=== PATIENT | female | born 1945 | race Caucasian/White ===

== ENCOUNTER 2017-10-09 07:31 | Outpatient (CLI) | payer MEDICARE | END 2017-10-09 07:32 | disposition home or self-care (01) | LOC: BICCT 07:31 | PROVIDERS: ATTEND Urology | DX: N20.0 Calculus of kidney (principal); R35.0 Frequency of micturition | CPT/HCPCS: 74176 ==

== ENCOUNTER 2017-11-22 19:58 | Observation (INO) | payer MEDICARE ==
[2017-11-22 20:37] LABS: #Basophils 0.1 thou/uL (0.0-0.2); #Eosinphils 0.2 thou/uL (0.0-0.7); #Lymphocytes 3.2 thou/uL (1.20-3.40); #Monocytes 0.7 thou/uL (0.11-0.59); #Neutrophils 5.3 thou/uL (1.40-6.50); %Basophils 1.1 % (0.0-1.0); %Eosinophils 1.8 % (0.0-10.0); %Lymphocytes 33.9 % (21.0-51.0); %Monocytes 7.7 % (0.0-10.0); %Neutrophils 55.6 % (42.0-75.0); Hemoglobin 16.9 g/dL (12.0-16.0); Mean Corpuscular HGB CONC 34.4 g/dL (32.0-36.0); Mean Corpuscular Hemoglobin 31.5 pg (27.0-31.0); Mean Corpuscular Volume 91.6 fl (81.0-99.0); Mean Platelet Volume 7.4 fL (7.4-10.4); Platelet Count 162 thou/uL (130-400); RBC Distribution Width 11.2 % (11.5-14.5); Red Blood Cell (RBC) Count 5.35 mill/uL (4.20-5.40); White Blood Cell (WBC) Count 9.5 thou/uL (4.8-10.8)
--- NOTE | 2017-11-22 20:47 | RAD ---
CHEST ONE VIEW: 11/22/17 COMPARISON: None. HISTORY: Pain x1 month. FINDINGS: Normal cardiac silhouette. Pulmonary vessels and hilum are normal. costophrenic angles are clear. Martin gs are hyperinflated. No consolidation. No pneumothorax or osseous abnormalities. IMPRESSION: Hyperinflation. COPD. No acute process. POS: [facility]
[2017-11-22 20:58] LABS: ALT (SGPT) 19 U/L (8-55); AST (SGOT) 24 U/L (5-34); Albumin 4.1 g/dL (3.4-4.8); Alkaline Phosphatase 99 U/L (40-150); Anion Gap 14 mmol/L (10-20); BUN (Urea Nitrogen) 15 mg/dL (9.8-20.1); Bilirubin, Total 0.5 mg/dL (0.2-1.2); CK (CPK) 68 U/L (29-168); Calc. Creatinine Clearance 0 mL/min (70-130); Calcium 9.6 mg/dL (7.8-10.44); Carbon Dioxide 22 mmol/L (23-31); Chloride 111 mmol/L (98-107); Estimated GFR-MDRD 69; Globulin 3.1 g/dL (2.4-3.5); Glucose 99 mg/dL (83-110); Protein, Total 7.2 g/dL (6.0-8.3); Sodium 143 mmol/L (136-145)
[2017-11-22 21:03] LABS: CKMB 0.7 ng/mL (0-6.6); Troponin I Less than 0.010 ng/mL (< 0.028)
[2017-11-22 23:53] LABS: Troponin I Less than 0.010 ng/mL (< 0.028)
[2017-11-23] MEDS ORDERED: Acetaminophen 325 MG TAB PO PRN (00:29)
[2017-11-23] MEDS ORDERED: Ondansetron ODT 4 MG TAB SL PRN (00:29)
[2017-11-23] MEDS ORDERED: Ondansetron HCl/PF 4 MG/2 ML Vial IVP PRN (00:29)
[2017-11-23] MEDS ORDERED: Sodium Chloride 0.9% 1,000 ML IV SCH (00:30)
[2017-11-23] MEDS ORDERED: Ipratropium Bromide 0.06% Nasal Inhaler 15ml EA NARE PRN (03:12)
[2017-11-23] MEDS ORDERED: Ibuprofen 200 MG TAB PO PRN (03:12)
[2017-11-23] MEDS ORDERED: Zolpidem Tartrate 5 MG TAB PO PRN (03:12)
[2017-11-23 03:16] LABS: Troponin I Less than 0.010 ng/mL (< 0.028)
[2017-11-23] MEDS ORDERED: Thyroid 60 MG TAB PO SCH (06:00)
[2017-11-23] MEDS ORDERED: Aspirin 325 MG TAB PO SCH (08:00)
[2017-11-23] MEDS ORDERED: Potassium Citrate 10 MEQ TAB PO SCH (08:00)
[2017-11-23] MEDS ORDERED: busPIRone HCl 5 MG TAB PO SCH (09:00)
[2017-11-23] MEDS ORDERED: Lisinopril 5 MG TAB PO SCH (09:00)
[2017-11-23] MEDS ORDERED: Enoxaparin Sodium 30 MG/0.3 ML SYRINGE SC SCH (09:00)
--- NOTE | 2017-11-23 15:01 | NM ---
MYOCARDIAL PERFUSION SCAN WITH SPECT IMAGING: HISTORY: Dyspnea with exertion. FINDINGS: Examination was performed using 28 mCi 99m Technetium sestamibi on the stress and 9 on the resting im ages. This shows a normal distribution of the radiopharmaceutical without signs of ischemia or scar. WALL MOTION: There is symmetric contractility to the ventricle. LEFT VENTRICULAR EJECTION FRACTION: The calculated left ventricular ejection fraction was 96%. Please correlate with echocardiogram. IMPRESSION: Unremarkable myocardial perfusion scan. POS: [facility]
[2017-11-23 15:52] VITALS: BP 157/71; TEMP 97.5
[2017-11-23] MEDS ORDERED: Aspirin 81 mg Enteric Coated Tablet PO SCH (18:00)
[2017-11-23] MEDS ORDERED: Metoprolol Tartrate 100 MG TAB PO SCH (18:00)
--- NOTE | 2017-11-23 18:30 | CON ---
DATE OF CONSULTATION: 11/23/2017 SUBJECTIVE: Patient is a pleasant 72-year-old woman who presents for evaluation of chest discomfort and dyspnea. The patient has previous history of SVT. She has been on chronic medical therapy. She also has a history of hypertension. The patient states that last month, she noted having substernal chest discomfort. This occurred primarily with exertion and was relieved by rest. The patient also feels a fluttering sensation. The patient states that this usually last up to 5 minutes. This did not occur at rest. PAST MEDICAL HISTORY: 1. Hypertension. 2. Thyroid disorder. 3. Supraventricular tachycardia. PAST SURGICAL HISTORY: Foot surgery, tonsillectomy, tubal ligation,and surgery for benign cyst. ALLERGIES: No known drug allergies. MEDICATIONS ON ADMISSION: Synthroid 120 mcg daily, potassium 50 mEq daily, lisinopril 5 daily, metoprolol 100 XL daily, buspirone 5 daily, aspirin 81 daily , andLipitor 20 at bedtime. SOCIAL HISTORY: Nonsmoker. ALLERGIES: No known drug allergies. REVIEW OF SYSTEMS: Ten-point system otherwise unremarkable. No history of easy bruising or bleeding, bright red blood per rectum. PHYSICAL EXAMINATION: GENERAL: Obese woman in no acute distress. VITAL SIGNS: Blood pressure was 160/69. NECK: Showed no jugular venous distention, no carotid bruits. LUNGS: Clear to auscultation. HEART: Regular rate and rhythm, normal S1, S2, no murmurs. ABDOMEN: Nondistended. EXTREMITIES: Showed no edema. SKIN: Warm and dry. NEUROLOGIC: Nonfocal. VASCULAR: Radial pulses 2+. LABORATORY DATA AND IMAGING DATA: White blood cell count 9.5, hemoglobin 16.9, hematocrit 49.0, platelets 162. Sodium 143, potassium 4.0, chloride 111, bicarbonate 22, BUN 15, creatinine is 0.81, troponin less than 0.01. BNP is 20. Her EKG revealed her to have normal sinus rhythm, nonspecific ST abnormality. IMPRESSION: 1. Chest pain. 2. History of supraventricular tachycardia. 3. Hypertension. 4. Hyperlipidemia. 5. Obesity. This patient presents with chest discomfort and palpitations. Her EKG has showed no acute change. Cardiac enzymes have no evidence of myocardial infarction. From a cardiac standpoint, would recommend stress testing .If there is any evidence of ischemia, then she will need to undergo further evaluation. PLAN: Proceed with Cardiolite stress testing. [facility]
[2017-11-23] MEDS ORDERED: Atorvastatin Calcium 20 MG TAB PO SCH (21:00)
== END 2017-11-23 16:26 | disposition home or self-care (01) ==
LOC: ERS 19:58 → 2SW 21:50
PROVIDERS: ADMIT Internal Medicine; ATTEND Internal Medicine
DX: R07.89 Other chest pain (principal); I10 Essential (primary) hypertension; E07.9 Disorder of thyroid, unspecified; I47.1 Supraventricular tachycardia; E78.5 Hyperlipidemia, unspecified; E66.9 Obesity, unspecified; Z68.23 Body mass index [BMI] 23.0-23.9, adult; Z79.82 Long term (current) use of aspirin; Z79.899 Other long term (current) drug therapy
CPT/HCPCS: 71045; 78452; 80053; 82550; 82553; 83880; 84484 ×3; 85025; 93005; 93017; 96360; 96361; 97139; 99285; A9500; G0378; 36415; J1650

== ENCOUNTER 2017-12-08 14:29 | Emergency (ER) | payer MEDICARE ==
--- NOTE | 2017-12-08 15:18 | ULT ---
LEFT LOWER EXTREMITY VENOUS ULTRASOUND: Date: 12/08/17 HISTORY: Left lower extremity pain. TECHNIQUE: Multiplanar Rosa scale and color Doppler images were obtained in a left lower extremity venous ultra sound. Spectral analysis of the Doppler waveforms were performed. FINDINGS: The left common femoral vein, profunda femoral vein, superficial femoral vein, and popliteal vein are normal in appearance without visible thrombus. These vessels demonstrate normal compression, flow, a nd augmentation. The posterior tibial vein and greater saphenous vein are also patent. IMPRESSION: No evidence of left lower extremity deep venous thrombosis. POS: [facility]
== END 2017-12-08 15:46 | disposition home or self-care (01) ==
LOC: ERS 14:29
DX: I83.812 Varicose veins of left lower extremity with pain (principal); E03.9 Hypothyroidism, unspecified; E78.5 Hyperlipidemia, unspecified; I10 Essential (primary) hypertension; F41.9 Anxiety disorder, unspecified; Z79.899 Other long term (current) drug therapy; Z79.82 Long term (current) use of aspirin

== ENCOUNTER 2017-12-20 00:07 | Inpatient (IN) | payer MEDICARE ==
[2017-12-20 00:30] LABS: #Eosinphils 0.1 thou/uL (0.0-0.7); #Monocytes 0.7 thou/uL (0.11-0.59); #Neutrophils 3.4 thou/uL (1.40-6.50); %Basophils 0.5 % (0.0-1.0); %Eosinophils 1.9 % (0.0-10.0); %Lymphocytes 41.2 % (21.0-51.0); %Monocytes 9.9 % (0.0-10.0); %Neutrophils 46.5 % (42.0-75.0); Hemoglobin 16.1 g/dL (12.0-16.0); Mean Corpuscular Hemoglobin 31.9 pg (27.0-31.0); Mean Corpuscular Volume 91.2 fL (78.0-98.0); Mean Platelet Volume 7.3 fL (7.4-10.4); Platelet Count 171 thou/uL (130-400); RBC Distribution Width 11.2 % (11.5-14.5); Red Blood Cell (RBC) Count 5.04 mill/uL (4.20-5.40); White Blood Cell (WBC) Count 7.4 thou/uL (4.8-10.8)
[2017-12-20 00:46] LABS: ALT (SGPT) 29 U/L (8-55); AST (SGOT) 20 U/L (5-34); Alkaline Phosphatase 90 U/L (40-150); Anion Gap 12 mmol/L (10-20); BUN (Urea Nitrogen) 12 mg/dL (9.8-20.1); Bilirubin, Total 0.8 mg/dL (0.2-1.2); Calc. Creatinine Clearance 0 mL/min (70-130); Calcium 9.4 mg/dL (7.8-10.44); Carbon Dioxide 27 mmol/L (23-31); Chloride 105 mmol/L (98-107); Estimated GFR-MDRD 73; Globulin 2.9 g/dL (2.4-3.5); Glucose 93 mg/dL (83-110); Potassium 4.2 mmol/L (3.5-5.1); Protein, Total 6.9 g/dL (6.0-8.3); Sodium 140 mmol/L (136-145)
[2017-12-20 00:50] LABS: Troponin I Less than 0.010 ng/mL (< 0.028)
[2017-12-20] MEDS ORDERED: Enoxaparin Sodium 80 MG/0.8 ML SYRINGE ONE (02:55)
[2017-12-20 04:27] LABS: Troponin I Less than 0.010 ng/mL (< 0.028)
[2017-12-20 06:49] LABS: Troponin I Less than 0.010 ng/mL (< 0.028)
--- NOTE | 2017-12-20 08:53 | RAD ---
PORTABLE CHEST 1 VIEW: Date: 12/19/17 Time: 2353 hours HISTORY: Chest pain. Shortness of breath. FINDINGS/IMPRESSION: Comparison made with exam of 11/22/17. The heart size is enlarged. The lungs are expanded with chronic changes. No lobar consolidation, pneu mothoraces, evelia pulmonary edema, or large effusions are seen. POS: [facility]
[2017-12-20] MEDS ORDERED: Aspirin 325 mg Enteric Coated Tablet PO SCH (09:00)
--- NOTE | 2017-12-20 09:15 | CT ---
PRELIMINARY REPORT/[facility]/EMERGENTY AFTER-HOURS PROCEDURE CT Head Without Intravenous Contrast CLINICAL HISTORY: 72 years old, female; Signs and symptoms; Altered mental status/memory loss; Confusion or disorientat ion; Patient HX: F72 presents to ed with left abd pain and a general sensation of feeling "weird" ons et 30 min ago. Pt was seen in hospital approx. 1 month ago. Pt reports that pain moved from llq to back, to left epigastric area, to left groin. Pt's family reports that pt was "out of it" for a time being, was hard to understand (possible slurred speech), and that she was "zombielike. " pt needed assistance walking into the ed. TECHNIQUE: Axial computed tomography images of the head/brain without intravenous contrast. COMPARISON: No relevant prior studies available. FINDINGS: Brain: Normal. No hemorrhage. No significant white matter disease. No edema. Ventricles: Normal. No ventriculomegaly. Bones/joints: Normal. No acute fracture. Soft tissues: Normal. Sinuses: Unremarkable as visualized. No acute sinusitis. Mastoid air cells: Unremarkable as visualized. No mastoid effusion. IMPRESSION: No acute intracranial hemorrhage. Thank you for allowing us to participate in the care of your patient. Dictated and Authenticated by: Pablo Cadena MD 12/20/2017 2:05 AM Central Time ([place] & [place]) FINAL REPORT CT BRAIN WITHOUT CONTRAST: Date: 12/20/17 FINDINGS/IMPRESSION: I agree with the preliminary report given by Anthony. No CT evidence of acute intracranial process is se en. POS: [facility]
--- NOTE | 2017-12-20 09:18 | CT ---
PRELIMINARY REPORT/[facility]/EMERGENTY AFTER-HOURS PROCEDURE CT Angiography Chest With Intravenous Contrast CLINICAL HISTORY: 72 years old, female; Pain; Chest pain; Abdominal pain; Flank; Other: Left sided; Patient HX: F72 pre sents to ed with left abd pain and a general sensation of feeling "weird" onset 30 min ago. Pt was se en in hospital approx. 1 month ago. Pt reports that pain moved from llq to back, to left epigastric a autumn, to left groin. Pt's family reports that pt was "out of it" for a time being, was hard to underst and (possible slurred speech), and that she was "zombielike. " pt needed assistance walking into the ed. TECHNIQUE: Axial computed tomographic angiography images of the chest with intravenous contrast using pulmonary embolism protocol. MIP reconstructed images were created and reviewed. Coronal and sagittal reformatted images were created and reviewed. COMPARISON: No relevant prior studies available. FINDINGS: Pulmonary arteries: There are filling defects within the RIGHT lower lobe pulmonary arteries consiste nt with acute pulmonary emboli. Aorta: There is no evidence of aortic dissection, leak, rupture, or other complications. The aorta is normal. Lungs: There is subpleural atelectasis of the dependent portions of the lungs. No mass. Pleural space: Normal. No significant effusion. No pneumothorax. Heart: RV LV ratio is approximately 0.9. No RIGHT heart strain. No significant pericardial effusion. Bones/joints: No acute fracture. No dislocation. Soft tissues: Normal. Lymph nodes: Normal. No enlarged lymph nodes. IMPRESSION: 1. There is no evidence of aortic dissection, leak, rupture, or other complications. 2. There are filling defects within the RIGHT lower lobe pulmonary arteries consistent with acute pul monary emboli. THIS REPORT CONTAINS FINDINGS THAT MAY BE CRITICAL TO PATIENT CARE. The findings were verbally commun icated via telephone conference with BETSY BANUELOS at 2:12 AM CDT on 12/20/2017. The findings were ac knowledged and understood. CT Angiography Abdomen With Intravenous Contrast TECHNIQUE: Axial computed tomographic angiography images of the abdomen with intravenous contrast. MIP reconstructed images were created and reviewed. Coronal and sagittal reformatted images were created and reviewed. COMPARISON: No relevant prior studies available. FINDINGS: Aorta: There is no evidence of aortic dissection, leak, rupture, aneurysm or other complications. The aorta is normal. Celiac trunk and mesenteric arteries: No acute findings. No occlusion or significant stenosis. Renal arteries: No acute findings. No occlusion or significant stenosis. Lung bases: Normal. No mass. No consolidation. Mediastinum: A small hiatal hernia is present. Liver: There are no focal liver lesions identified. Gallbladder and bile ducts: The gallbladder is normal. There is no evidence of biliary ductal dilatio n. No calcified stones. Pancreas: The pancreas appears normal. No ductal dilation. Spleen: The spleen is normal. Adrenals: The adrenal glands are normal. Kidneys and ureters: The kidneys appear normal. No hydronephrosis. Stomach and bowel: The stomach is normal. The duodenum is unremarkable. No obstruction. No mucosal th ickening. Intraperitoneal space: Normal. No significant fluid collection. No free air. Bones/joints: No acute fracture. No dislocation. Soft tissues: There is a fat-containing umbilical hernia. Lymph nodes: Normal. No enlarged lymph nodes. IMPRESSION: There is no evidence of aortic dissection, leak, rupture, aneurysm or other complications. Thank you for allowing us to participate in the care of your patient. Dictated and Authenticated by: Pablo Cadena MD 12/20/2017 2:13 AM Central Time ([place] & [place]) FINAL REPORT CT CHEST WITH IV CONTRAST AND 3D POSTPROCESSING CT ABDOMEN WITH IV CONTRAST AND 3D POSTPROCESSING: Date: 12/20/17 FINDINGS/IMPRESSION: I agree with the preliminary report given by Anthony. POS: [facility]
[2017-12-20] MEDS ORDERED: ISOVUE-370 76%-LOCM 1 ML ONE (10:46)
[2017-12-20] MEDS ORDERED: hydrALAZINE 20 MG/ML VIAL SLOW IVP PRN (13:21)
[2017-12-20] MEDS ORDERED: cloNIDine 0.1 MG TAB PO PRN (13:21)
[2017-12-20] MEDS ORDERED: Ipratropium Bromide 0.06% Nasal Inhaler 15ml EA NARE PRN (13:21)
[2017-12-20] MEDS ORDERED: Ondansetron ODT 4 MG TAB PO PRN (13:21)
[2017-12-20] MEDS ORDERED: Ondansetron HCl/PF 4 MG/2 ML Vial IVP PRN (13:21)
[2017-12-20] MEDS ORDERED: Zolpidem Tartrate 5 MG TAB PO PRN (13:21)
[2017-12-20] MEDS ORDERED: Acetaminophen 500 MG TAB PO PRN (13:21)
--- NOTE | 2017-12-20 14:07 | HP ---
DATE OF ADMISSION: 12/20/2017 PRIMARY CARE PROVIDER: Dr. Chase Olvera. CHIEF COMPLAINT: Left-sided chest and abdominal pain. HISTORY OF PRESENT ILLNESS: This is a 72-year-old female who presented to [facility] Emergency Department complaining of persistent left chest and left upper abdominal pain. The pat ient states the symptoms began approximately midnight on 12/20/2017. Patient states she had gone to bed when she developed left-sided chest, left upper abdominal and back discomfort. The patient also appeared somewhat confused and "zombielike" per report. The patient went to the restroom and then return back to bed; however, the pain increased concerning enough to seek medical attention. T he patient denied any specific shortness of breath, recent trauma, injury, surgery, fever, chills or travel history. The patient denied taking any specific medication for relief. Patient states she andersen s had some migratory symptoms in the left chest and left upper abdomen over the last couple of months and underwent cardiac stress testing in 11/2017 with negative findings. The patient also had some p ain in the left lower leg, undergoing Doppler studies on 12/08/2017 showing no evidence for DVT. The patient denies any change to her chronic medication regimen. Family members with similar symptoms, recent travel or prolonged sitting. The patient denies any recent fall, change to bowel habits, dysu itz or history of kidney stones. In the emergency room, the patient underwent general evaluation inc luding CT of the chest with dissection protocol showing right lower lung pulmonary embolus appearing acute in nature. Patient also underwent CT of the brain showing no acute process and portable chest x-ray imaging showing chronic changes without acute process. The patient received subcutaneous Loven ox 80 mg x1 dose as well as aspirin 324 mg. The patient was transferred to the telemetry unit for fu rther evaluation. PAST MEDICAL HISTORY: 1. Hypothyroidism. 2. Hypertension. 3. Hyperlipidemia. 4. History of bilateral breast cyst status post cystectomy. PAST SURGICAL HISTORY: 1. Status post left foot surgery. 2. Status post bilateral tubal ligation. 3. Status post tonsillectomy. CURRENT MEDICATIONS: 1. Synthroid 120 mcg p.o. daily. 2. Potassium 50 mEq p.o. daily. 3. Lisinopril 5 mg p.o. daily. 4. Metoprolol 100 mg XL daily. 5. BuSpar 5 mg p.o. daily. 6. Ipratropium bromide 2 sprays in each naris t.i.d. p.r.n. 7. Lisinopril 5 mg p.o. daily. 8. Stewart thyroid 120 mg p.o. daily. 9. Ambien 5 mg p.o. at bedtime p.r.n. ALLERGIES: No known drug allergies. FAMILY HISTORY: No inheritable diseases per patient report. SOCIAL HISTORY: Patient is , accompanied by her in the hospital. Retired teacher. N o current alcohol, tobacco or illicit drug use. REVIEW OF SYSTEMS: The following complete review of systems was negative, unless otherwise mentioned in the HPI or below: Constitutional: Weight loss or gain, ability to conduct usual activities. Skin: Rash, itching. Eyes: Double vision, pain. ENT/Mouth: Nose bleeding, neck stiffness, pain, tenderness. Cardiovascular: Palpitations, dyspnea on exertion, orthopnea. Respiratory: Shortness of breath, wheezing, cough, hemoptysis, fever or night sweats. Gastrointestinal: Poor appetite, abdominal pain, heartburn, nausea, vomiting, constipation, or diarr hea. Genitourinary: Urgency, frequency, dysuria, nocturia. Musculoskeletal: Pain, swelling. Neurologic/Psychiatric: Anxiety, depression. Allergy/Immunologic: Skin rash, bleeding tendency. Otherwise negative except as stated per HPI. PHYSICAL EXAMINATION: VITAL SIGNS: Currently blood pressure 120/60, pulse 70, respiratory rate 17, temperature 97.7 degree s Fahrenheit, O2 saturation 100% on room air. GENERAL APPEARANCE: This is a 72-year-old female, alert and oriented x3, pleasant, convers ant, smiling, in no acute distress. HEENT: Pupils are equal, round, and reactive to light and accommodation. Extraocular muscles are in tact. No scleral icterus, no conjunctival injection. Nares patent. OP is clear. Teeth in good rep air. NECK: Supple, no cervical adenopathy, no thyromegaly, no carotid bruits, no JVD appreciated. Cervic al spine with full active and passive range of motion. No meningeal signs appreciated. CHEST: Lungs are clear to auscultation bilaterally. CARDIOVASCULAR: S1 and S2 without noted murmur, rub or gallop. ABDOMEN: Rounded, soft, nontender and nondistended. Bowel sounds are positive in all four quadrants . There is no hepatosplenomegaly, no abdominal bruits, no rebound or guarding appreciated. EXTREMITIES: Warm and dry with fair turgor. No clubbing, cyanosis or asymmetric edema appreciated. Pulses palpable distally at the dorsalis pedis, posterior tibial, and popliteal arteries bilaterally . Capillary refill less than 2 seconds. NEUROLOGIC: Cranial nerves II-XII are grossly intact. No focal or lateralizing signs appreciated. PERTINENT LABORATORY DATA AND IMAGING DATA: Complete metabolic profile within normal limits. Tropon in I negative x3. Lipase 59. CBC showed white blood cell count of 7.4, hemoglobin 16, hematocrit 46 , platelet count [address] of the chest with dissection protocol dated 2017 showed filling defects within the right lower lobe pulmonary arteries consistent with acute pulm onary emboli. No evidence for aortic dissection. Portable chest x-ray dated 12/20/2017 showed cardi omegaly with chronic changes in bilateral lung win. CT of the brain without contrast dated 2017 showed no acute intracranial process. EKG dated 12/20/2017 by my interpretation shows sinus mec hanism with heart rates in the 60s. Attenuated R waves noted in the precordial leads. Normal axis. No acute ST-T wave changes appreciated. ASSESSMENT AND PLAN: 1. Acute right lower pulmonary emboli. The patient will be admitted to the telemetry unit. Continu e Lovenox 80 mg subcutaneously q.12 hours. Obtain 2D transthoracic echocardiogram assessing valvular structures and ejection fraction. Check bilateral lower extremity venous Doppler study to rule out deep venous thrombosis. Consult Pulmonology Service for any further recommendations and planning for outpatient management. Check stool for hemoccult. 2. Hypertension. Resume home antihypertensive regimen and monitor clinical response. 3. Hypothyroidism. Continue Stewart Thyroid 120 mg daily. Check TSH and free T4 level. 4. Left upper quadrant abdominal pain, etiology unclear. We will continue symptomatic and supportiv e management. No current evidence to suggest source. 5. Prophylaxis. Sequential compression devices while in bed. Pepcid 20 mg p.o. b.i.d. 6. Code status is FULL. Surrogate medical decision maker is patient's spouse.
[2017-12-20] MEDS ORDERED: Enoxaparin Sodium 80 MG/0.8 ML SYRINGE SC SCH ×2 (15:00→21:00)
--- NOTE | 2017-12-20 15:25 | ULT ---
BILATERAL LOWER EXTREMITY VENOUS DOPPLER ULTRASOUND: Date: 12/20/17 HISTORY: Pulmonary embolism. TECHNIQUE: TECHNIQUE: Rosa scale ultrasound with color flow and spectral Doppler imaging of the deep venous systems of the lower extremities was performed bilaterally. FINDINGS: There is good flow, compression, and augmentation noted in the common femoral, femoral, deep femoral, popliteal, posterior tibial, and greater saphenous veins on either side. IMPRESSION: No evidence of deep venous thrombosis in either lower extremity. POS: [facility]
[2017-12-20] MEDS: Aspirin 81 mg Enteric Coated Tablet PO SCH (18:24)
[2017-12-20] MEDS: Famotidine 20 MG TAB PO SCH (20:46)
[2017-12-20] MEDS: Apixaban 5 MG TAB PO SCH (20:47)
[2017-12-20] MEDS ORDERED: busPIRone HCl 5 MG TAB PO SCH (21:00)
[2017-12-20] MEDS ORDERED: Atorvastatin Calcium 20 MG TAB PO SCH (21:00)
--- NOTE | 2017-12-20 23:02 | CON ---
DATE OF SERVICE: 12/20/2017 SERVICE: Pulmonary Medicine. REASON FOR CONSULTATION: PE. HISTORY OF PRESENT ILLNESS: The patient is a 72-year-old white female who had a nonspecific onset of abrupt sharp chest discomfort on the left side that crept up into her anterior chest, and went more midline. That being said, the pain subsided after a period of 4-5 minutes. She presented to the Emergency Department. A CT dissection protocol was performed, which demonstrated a right lower lobe pulmonary nodule. She notes having some dyspnea on exertion, has been slowly worsening, starting about a month ago. She has not had orthopnea, paroxysmal nocturnal dyspnea, night sweats, cough, or hemoptysis. She recently had a negative stress test. This was an exercise stress test as well as a myocardial perfusion scan. She is seeing Dr. Craft in the outpatient setting with a preclinic echocardiogram on Monday. She was also set up to see Dr. Deal in pulmonary clinic for evaluation. Either way, she got put on anticoagulation. She is currently chest pain free and has no complaints of dyspnea. PAST MEDICAL HISTORY: 1. Hypothyroidism. 2. Hypertension. 3. Dyslipidemia. 4. Bilateral breast cyst, status post cystectomies. 5. History of pulmonary embolism. PAST SURGICAL HISTORY: 1. Left foot surgery. 2. Bilateral tubal ligation. 3. Tonsillectomy. ALLERGIES: No known drug allergies. MEDICATIONS: List of her inpatient medications were reviewed. A couple of small updates were made at this time. FAMILY HISTORY: Noncontributory. She has no family history of thromboembolic disease. SOCIAL HISTORY: Negative for alcohol, tobacco or illicit drug use. She is . She is a retired teacher. She denies any alcohol or illicit drug use. She has no exposure to chemicals, dust, asbestos or tuberculosis. REVIEW OF SYSTEMS: General, head, ears, eyes, nose, throat, cardiovascular, respiratory, GI, , musculoskeletal, neurologic and skin is negative except as mentioned in the HPI. PHYSICAL EXAMINATION: VITAL SIGNS: Afebrile, pulse 73, blood pressure 135/63, respirations 16, saturation 94% on room air. GENERAL: The patient is awake, alert, no apparent distress. LUNGS: Excellent air entry without prolonged expiratory phase, wheezing, rhonchi or crackles. HEART: Normal rate, regular. ABDOMEN: Soft, nontender, nondistended. Bowel sounds are positive. MUSCULOSKELETAL: No cyanosis or clubbing. No pitting in the bilateral lower extremities. NEUROLOGIC: Nonfocal. LABORATORY: WBC 7.4, hemoglobin 16.1, platelets 171,000. Basic metabolic profile, liver function studies, cardiac enzymes, lipase, and BNP are all unremarkable previously. IMAGIN. Ultrasound of bilateral lower extremities demonstrates no evidence of PE. 2. CT of the brain demonstrates no acute intracranial abnormality. 3. CT dissection protocol demonstrates no evidence of a dissection. She has very subtle ground glass changes possibly consistent with minimal volume overload. She also has a right lower lobe pulmonary embolism that appears to be subacute in quality. 4. Chest x-ray demonstrates no acute cardiopulmonary abnormality. ASSESSMENT: 1. Acute pulmonary embolism, small. 2. Dyspnea on exertion. DISCUSSION AND PLAN: The patient has very subtle features, possibly consistent with minimal volume overload on the CT of the chest. This includes minimal left atrial enlargement, subtle ground glass changes, and interstitial fullness , likely associated with a touch of pulmonary edema. This is independent of the pulmonary embolism that is identified. That being said, there is no evidence of right heart strain. The right ventricle is nearly normal in size. There is no flattening of the septum. There is minimal reflux of contrast in the inferior vena cava. As such, she is at low risk of having significant complications from this thromboembolic event. From my perspective, she is a candidate for discharge from the hospital tomorrow morning. I have had a long conversation with her, her and her daughter at bedside today. We talked about the risks and benefits of no therapy versus direct oral anticoagulant versus Coumadin. After discussing the risks and benefits of each of these things, the patient has decided to proceed with direct oral anticoagulant. She understands that if she has significant bleeding from the location where she cannot put her finger on it to stop the blood, she is to present immediately to the emergency department. She also appreciates the very remote risk of having an intracranial hemorrhage that could be potentially devastating. That being said, at this time, the risk of no anticoagulation is far greater than anticoagulation. I will have her return to clinic to see me in 2-3 weeks in the outpatient setting. She can cancel previously scheduled appointment with Dr. Deal. She has never actually established with him. We were getting an echocardiogram here in the hospital. She will touch base with Cardiology tomorrow morning to determine whether or not she needs to sit for her scheduled echo on Monday. If she remains in house, I will continue to follow, but from a purely lung perspective, she is stable for transition out of the hospital. She will need 7 days of the high dose of Eliquis followed by the maintenance dose. My plan is to continue her anticoagulation for a period of six months before discontinuing it. 70 minutes have been devoted to this patient in various activities. I personally reviewed all imaging studies and laboratory data noted within this document. For fifty percent of this time, I was interacting with the patient at the bedside or coordinating care with the care team. For the remainder of the time I was immediately available to the patient in the hospital unit. REGAN
[2017-12-21 05:33] LABS: Free T4 (Free Thyroxine) 0.87 ng/dL (0.70-1.48); Thyroid Stimulating Hormone Less than 0.0025 uIU/mL (0.35-4.94)
[2017-12-21 05:38] LABS: Band 3 % (5-11); Eosinophils 5 % (0-10); Hemoglobin 15.1 g/dL (12.0-16.0); Lymphocytes 38 % (21-51); MDiff Complete? YES; Mean Corpuscular HGB CONC 34.1 g/dL (32.0-36.0); Mean Corpuscular Hemoglobin 31.1 pg (27.0-31.0); Mean Corpuscular Volume 91.3 fL (78.0-98.0); Mean Platelet Volume 7.6 fL (7.4-10.4); Monocytes 5 % (0-10); Neutrophil 49 % (42-75); Platelet Count 158 thou/uL (130-400); RBC Distribution Width 11.2 % (11.5-14.5); Red Blood Cell (RBC) Count 4.84 mill/uL (4.20-5.40); White Blood Cell (WBC) Count 6.5 thou/uL (4.8-10.8)
[2017-12-21] MEDS ORDERED: Thyroid 60 MG TAB PO SCH (06:00)
[2017-12-21] MEDS ORDERED: Furosemide 20 MG/2 ML VIAL SLOW IVP SCH ×2 (07:00→08:30)
[2017-12-21] MEDS ORDERED: Sodium Chloride 0.9% 10 ML ONE (07:50)
[2017-12-21] MEDS ORDERED: Lisinopril 5 MG TAB PO SCH (09:00)
[2017-12-21] MEDS ORDERED: Potassium Citrate 10 MEQ TAB PO SCH (09:00)
[2017-12-21] MEDS ORDERED: busPIRone HCl 5 MG TAB PO SCH (09:00)
[2017-12-21] MEDS: Apixaban 5 MG TAB PO SCH (09:54)
[2017-12-21] MEDS: Famotidine 20 MG TAB PO SCH (09:54)
--- NOTE | 2017-12-21 10:29 | PRG ---
DATE OF SERVICE: 12/21/2017 SERVICE: Pulmonary Medicine INTERVAL HISTORY: The patient is doing fine from a respiratory standpoint. She is breathing comfort ably. She has no complaints of chest discomfort, nausea, vomiting, fevers or chills. Otherwise, the re has been no interval change to her condition. PHYSICAL EXAMINATION: VITAL SIGNS: Afebrile, pulse 63, blood pressure 130/61, respirations 18, saturation 95% on room air. GENERAL: The patient is awake, alert, in no apparent distress. LUNGS: Excellent air entry. No prolonged expiratory phase, wheezing, rhonchi or crackles are presen t. HEART: Normal rate, regular. ABDOMEN: Soft, nontender, nondistended. Bowel sounds are positive. MUSCULOSKELETAL: No cyanosis or clubbing. There is no pitting in the bilateral lower extremities. NEUROLOGIC: Grossly nonfocal. LABORATORY: WBC 6.5, hemoglobin 15.1, platelets 158,000. Basic metabolic profile is otherwise unrem arkable. TSH is below the assay limit of 0.0025. ASSESSMENT: 1. Acute pulmonary embolism. 2. Dyspnea on exertion. 3. Hyperthyroidism, iatrogenic. DISCUSSION AND PLAN: The patient is doing fine from a respiratory standpoint. She will need 6 month s of anticoagulation. My suspicion is that her hypercoagulable state is likely stemming from over re placement of the thyroid. I will back off on her [place] Thyroid and this will need to be followed cl osely in the outpatient setting. Pulmonary Critical Care will continue to follow as long as she katerina ins in house.
--- NOTE | 2017-12-21 14:28 | PDOC.PN ---
- Subjective Encounter Start Date: 12/21/17 Encounter Start Time: 14:26 Subjective: feels very well.no chest pain/SOB - Objective Resuscitation Status: Resuscitation Status FULL:Full Resuscitation MAR Reviewed: Yes Vital Signs & Weight: Vital Signs (12 hours) Temp Pulse Resp BP Pulse Ox 12/21/17 12:00 97.6 F 64 14 120/74 94 L 12/21/17 08:00 97.9 F 63 18 130/61 95 12/21/17 04:00 98.8 F 67 18 113/55 L 94 L Weight Weight 172 lb 3.2 oz I&O: 12/20/17 12/21/17 12/22/17 06:59 06:59 06:59 Intake Total 1690 Output Total 2400 Balance -710 Result Diagrams: 12/21/17 04:01 12/20/17 00:11 Additional Labs: labs reviewed Phys Exam - Physical Examination Constitutional: NAD HEENT: PERRLA, moist MMs, sclera anicteric, oral pharynx no lesions Neck: no nodes, no JVD, supple, full ROM Respiratory: no wheezing, no rales, no rhonchi, clear to auscultation bilateral Cardiovascular: RRR, no significant murmur, no rub Gastrointestinal: soft, non-tender, no distention, positive bowel sounds Musculoskeletal: no edema, pulses present Neurological: non-focal, normal sensation, moves all 4 limbs Psychiatric: normal affect, A&O x 3 Skin: no rash Dx/Plan (1) Pulmonary embolism Code(s): I26.99 - OTHER PULMONARY EMBOLISM WITHOUT ACUTE COR PULMONALE Status : Acute Qualifiers: Chronicity: acute Acute cor pulmonale presence: without acute cor pulmonale (2) HTN (hypertension) Code(s): I10 - ESSENTIAL (PRIMARY) HYPERTENSION Status: Acute (3) Hypothyroid Code(s): E03.9 - HYPOTHYROIDISM, UNSPECIFIED Status: Acute - Plan DVT proph w/SCDs cont eliquis .OP f/u w PCCM -: DC home later today once ECHO is done,. -: pt wants to f/u w ECHO results with PCP -: hemodynamically stable * . Review of Systems - Review of Systems Constitutional: negative: fever, chills, sweats, weakness, malaise, other Respiratory: negative: Cough, Dry, Shortness of Breath, Hemoptysis, SOB with Excertion, Pleuritic Pain, Sputum, Wheezing Cardiovascular: negative: chest pain, palpitations, orthopnea, paroxysmal nocturnal dyspnea, edema, light headedness, other Gastrointestinal: negative: Nausea, Vomiting, Abdominal Pain, Diarrhea, Constipation, Melena, Hematochezia, Other Genitourinary: negative: Dysuria, Frequency, Incontinence, Hematuria, Retention , Other Musculoskeletal: negative: Neck Pain, Shoulder Pain, Arm Pain, Back Pain, Hand Pain, Leg Pain, Foot Pain, Other Skin: negative: Rash, Lesions, Jesús, Bruising, Other Neurological: negative: Weakness, Numbness, Incoordination, Change in Speech, Confusion, Seizures, Other - Medications/Allergies Allergies/Adverse Reactions: Allergies Allergy/AdvReac Type Severity Reaction Status Date / Time No Known Drug Allergies Allergy Verified 12/20/17 05:20 Medications: Current Medications Acetaminophen (Tylenol) 1,000 mg PO Q6H PRN PRN Reason: Headache/Fever or Mild Pain Apixaban (Eliquis) 10 mg PO BID [facility] Last Admin: 12/21/17 09:54 Dose: 10 mg Aspirin (Ecotrin) 162 mg PO 1800 [facility] Last Admin: 12/20/17 18:24 Dose: Not Given Atorvastatin Calcium (Lipitor) 20 mg PO HS [facility] Last Admin: 12/20/17 20:47 Dose: 20 mg Buspirone HCl (Buspar) 5 mg PO DAILY [facility] Last Admin: 12/21/17 09:54 Dose: 5 mg Buspirone HCl (Buspar) 5 mg PO Q2D@2100 [facility] Last Admin: 12/20/17 20:47 Dose: 5 mg Clonidine (Catapres) 0.1 mg PO Q4H PRN PRN Reason: Systolic BP > 180 Famotidine (Pepcid) 20 mg PO BID [facility] Last Admin: 12/21/17 09:54 Dose: 20 mg Hydralazine HCl (Apresoline) 10 mg SLOW IVP Q4H PRN PRN Reason: Systolic BP > 180 Ipratropium [place] (Atrovent 0.06% Nasal Inhaler) 0 ml EA NARE TID PRN PRN Reason: NASAL STUFFINESS Lisinopril (Zestril) 5 mg PO DAILY [facility] Last Admin: 12/21/17 09:55 Dose: 5 mg Metoprolol Succinate (Toprol Xl) 100 mg PO BID [facility] Last Admin: 12/21/17 09:55 Dose: 100 mg Ondansetron HCl (Zofran Odt) 4 mg PO Q6H PRN PRN Reason: Nausea/Vomiting Ondansetron HCl (Zofran) 4 mg IVP Q6H PRN PRN Reason: Nausea/Vomiting Potassium Citrate (Urocit K) 30 meq PO DAILY [facility] Last Admin: 12/21/17 10:53 Dose: 30 meq Thyroid ([place] Thyroid) 30 mg PO DAILY [facility] Zolpidem Tartrate (Ambien) 5 mg PO HS PRN PRN Reason: Insomnia
[2017-12-21 14:45] VITALS: BMI 30.4
[2017-12-21 15:29] VITALS: BP 158/69; TEMP 98.4
[2017-12-21] MEDS: Aspirin 81 mg Enteric Coated Tablet PO SCH (17:20)
--- NOTE | 2017-12-22 08:57 | DIS ---
DATE OF ADMISSION: 12/20/2017 DATE OF DISCHARGE: 12/22/2017 CONDITION AT THE TIME OF DISCHARGE: Stable and improved. DISCHARGE DISPOSITION: Home. PRIMARY CARE PHYSICIAN: Dr. Chase Olvera. INHOUSE CONSULTATION: Pulmonology, Dr. García. PROCEDURES DONE IN THE HOSPITAL: 1. CT scan with aortic dissection protocol upon presentation, which is negative for any dissection, leak, rupture or other complications. This was positive for right lower lobe pulmonary artery pulmon charles embolism. 2. Chest x-ray upon presentation, which was unremarkable except for mild cardiomegaly. 3. CT scan of the brain upon presentation, which was negative for any acute hemorrhage, mass or infa rction. 4. Transthoracic echocardiogram which shows preserved ejection fraction of 55%-60% with mildly dilat ed left atrium and mild to moderate mitral and tricuspid regurgitation without any elevation of right ventricular systolic pressure. Lower extremity ultrasound bilaterally which is negative for DVT. HISTORY OF PRESENTING ILLNESS: Ms. Enciso is a pleasant 72-year-old female with past medical hist ory of hypothyroidism, hypertension, dyslipidemia, and history of bilateral breast cyst who presented to the emergency room with complaints of left-sided chest and abdominal pain. She also had some men elvin status changes according to her family. In the emergency room, she underwent a general evaluatio n including CT scan of the chest with dissection protocol, which showed right lower lobe pulmonary em bolism, acute in nature. She was given therapeutic dose of Lovenox as well as aspirin and was admitt ed to hospital for further evaluation and care. She was hemodynamically stable upon presentation. P monica see admission history and physical for further details. HOSPITAL COURSE: The patient was started on Lovenox and Pulmonology was consulted. Dr. García saw the patient and recommended oral anticoagulation for at least 6 months with outpatient followup. She was transitioned to oral anticoagulant, namely Eliquis 10 mg p.o. b.i.d. She is given referral to jose carlos García in the outpatient setting. She also underwent a transthoracic echocardiogram, which was rather unremarkable as mentioned above. She also got troponin trended, which were negative x3. Her TSH was found to be less than 0.0025. H er thyroid medication dose was adjusted as she was taking too much thyroid. It was changed from almo st 200 mg to 30 mg daily. DISCHARGE MEDICATIONS: Resume home medications as follows; potassium citrate 3 tablets daily, ipratr opium spray t.i.d. p.r.n., Ambien 5 mg p.o. at bedtime p.r.n., Lipitor 20 mg daily, aspirin 162 mg da harika, BuSpar 5 mg as needed daily, lisinopril 5 mg daily, metoprolol succinate 100 mg p.o. b.i.d. New medications: Eliquis 10 mg p.o. b.i.d., [place] Thyroid 30 mg daily. Discharge plan was discussed with the patient and her daughter present in the room and they verbalize d understanding. The patient was seen and examined prior to discharge. Please see hospitalist progress note from the day of discharge for further detail. Total time spent in the discharge 32 minutes.
[2017-12-22] MEDS ORDERED: Thyroid 30 MG TAB PO SCH (09:00)
--- NOTE | 2017-12-23 12:05 | EKG ---
Test Reason : Blood Pressure : / mmHG Vent. Rate : 065 BPM Atrial Rate : 065 BPM P-R Int : 156 ms QRS Dur : 072 ms QT Int : 420 ms P-R-T Axes : 030 004 004 degrees QTc Int : 436 ms Normal sinus rhythm Possible Left atrial enlargement Borderline ECG Confirmed by LAKISHA ROMEO, BETSY Forde ([id number]), market editor CHARLES FLORES ([id number]) on 12/23/2017 12:04:50 PM Referred By: Confirmed By:BETSY BANUELOS MD
== END 2017-12-21 18:35 | disposition home or self-care (01) | DRG 176 ==
LOC: ERS 00:07 → 2NO 05:13
PROVIDERS: ADMIT Hospitalist; ATTEND Hospitalist
DX: I26.99 Other pulmonary embolism without acute cor pulmonale (principal); I10 Essential (primary) hypertension; E78.5 Hyperlipidemia, unspecified; R10.12 Left upper quadrant pain; R06.00 Dyspnea, unspecified; E03.2 Hypothyroidism due to medicaments and other exogenous substances; I08.1 Rheumatic disorders of both mitral and tricuspid valves; Z87.898 Personal history of other specified conditions
CPT/HCPCS: 36415; 36416; 70450; 71045; 71275; 80053; 82553; 83690; 84439; 84443; 84484; 85007; 85025; 85027; 93005; 93306; 93970; 94760; A4216; J1650; J1940

== ENCOUNTER 2018-01-24 08:54 | Outpatient (CLI) | payer MEDICARE | END 2018-01-24 08:55 | disposition home or self-care (01) | LOC: BICMAMMO 08:54 | PROVIDERS: ATTEND Obstetrics & Gynecology | DX: Z12.31 Encounter for screening mammogram for malignant neoplasm of breast (principal); Z80.3 Family history of malignant neoplasm of breast | CPT/HCPCS: 77063; 77067 ==

== ENCOUNTER 2018-06-25 12:59 | Outpatient (CLI) | payer MEDICARE ==
--- NOTE | 2018-06-25 14:30 | RAD ---
KUB: INDICATION: Recurrent kidneys. COMPARISON: Prior CT aortic dissection protocol dated 12/20/2017. FINDINGS: There is a stable 5 mm calculus involving the inferior pole of the left kidney. There is a stable 3 mm calculus involving the involving inferior pole of the right kidney. There are numerous scattered calcifications involving the lower pelvis, many of which are felt to be related to phleboliths. No a cute osseous abnormality is evident. There is mild scattered degenerative disk disease. IMPRESSION: Stable nephrolithiasis. POS: [facility]
== END 2018-06-25 13:00 | disposition home or self-care (01) ==
LOC: BICRAD 12:59
PROVIDERS: ATTEND Urology
DX: N20.0 Calculus of kidney (principal)
CPT/HCPCS: 74018

== ENCOUNTER 2019-01-29 09:03 | Outpatient (CLI) | payer MEDICARE ==
--- NOTE | 2019-01-29 10:03 | MMO ---
Bilateral MAMMO Bilat Screen [facility]. CLINICAL HISTORY: Patient is 73 years old and is seen for screening. The patient has no personal history of cancer. The patient has a history of right Excisional Biopsy in 1971 - benign and left Excisional Biopsy in 1961 and 1972 - benign. VIEWS: The views performed were: bilateral craniocaudal with tomosynthesis and bilateral mediolateral oblique with tomosynthesis. FILMS COMPARED: The present examination has been compared to prior imaging studies performed at [facility] on 10/15/2014, 10/26/2015, 11/30/2016 and 01/24/2018. MAMMOGRAM FINDINGS: There are scattered fibroglandular densities. There are no suspicious masses, calcifications or areas of architectural distortion. There are benign appearing calcifications in both breasts. There are no suspicious masses, suspicious calcifications, or new areas of architectural distortion. IMPRESSION: THERE IS NO MAMMOGRAPHIC EVIDENCE OF MALIGNANCY. A ROUTINE FOLLOW-UP MAMMOGRAM IN 1 YEAR IS RECOMMENDED. THE RESULTS OF THIS EXAM WERE SENT TO THE PATIENT. ACR BI-RADS Category 2 - Benign finding MAMMOGRAPHY NOTE: 1. A negative mammogram report should not delay a biopsy if a dominant of clinically suspicious mass is present. 2. Approximately 10% to 15% of breast cancers are not detected by mammography. 3. Adenosis and dense breasts may obscure an underlying neoplasm. Reported by: JENNIFER EVANS MD Electonically Signed: [id number]
== END 2019-01-29 09:04 | disposition home or self-care (01) ==
LOC: BICMAMMO 09:03
PROVIDERS: ATTEND Obstetrics & Gynecology
DX: Z12.31 Encounter for screening mammogram for malignant neoplasm of breast (principal); Z91.89 Other specified personal risk factors, not elsewhere classified
CPT/HCPCS: 77063; 77067

== ENCOUNTER 2019-07-11 10:45 | Outpatient (CLI) | payer MEDICARE ==
--- NOTE | 2019-07-11 12:11 | RAD ---
KUB: HISTORY: Recurrent kidney stones. COMPARISON: 06/25/2018 FINDINGS: An anterior view of the abdomen shows a questionable calcification projecting over the lower pole of the left kidney. There is also a questionable tiny calcification projecting over the lower pole of th e right kidney. Evaluation is limited secondary to the patient's large body habitus. No calcification s are seen along the course of the ureters. IMPRESSION: Possible small bilateral renal calcifications. POS: [facility]
== END 2019-07-11 10:46 | disposition home or self-care (01) ==
LOC: BICRAD 10:45
PROVIDERS: ATTEND Urology
DX: N20.0 Calculus of kidney (principal)
CPT/HCPCS: 36415; 74018; 80048; 81001

== ENCOUNTER 2020-01-16 02:45 | Emergency (ER) | payer MEDICARE ==
[2020-01-16 03:59] LABS: #Eosinphils 0.1 thou/uL (0.0-0.7); #Lymphocytes 2.5 thou/uL (1.20-3.40); #Monocytes 0.6 thou/uL (0.11-0.59); #Neutrophils 3.3 thou/uL (1.40-6.50); %Basophils 0.7 % (0.0-1.0); %Lymphocytes 37.9 % (21.0-51.0); %Monocytes 9.6 % (0.0-10.0); %Neutrophils 49.8 % (42.0-75.0); Hemoglobin 15.6 g/dL (12.0-16.0); Mean Corpuscular HGB CONC 34.8 g/dL (32.0-36.0); Mean Corpuscular Hemoglobin 33.6 pg (27.0-31.0); Mean Corpuscular Volume 96.5 fL (78.0-98.0); Mean Platelet Volume 7.7 fL (7.4-10.4); Platelet Count 160 thou/uL (130-400); Red Blood Cell (RBC) Count 4.65 mill/uL (4.20-5.40); White Blood Cell (WBC) Count 6.6 thou/uL (4.8-10.8)
[2020-01-16 04:20] LABS: ALT (SGPT) 15 U/L (8-55); AST (SGOT) 18 U/L (5-34); Albumin 3.8 g/dL (3.4-4.8); Alkaline Phosphatase 89 U/L (40-110); Anion Gap 11 mmol/L (10-20); BUN (Urea Nitrogen) 16 mg/dL (9.8-20.1); Bilirubin, Total 0.6 mg/dL (0.2-1.2); Calc. Creatinine Clearance 0 mL/min (70-130); Calcium 8.6 mg/dL (7.8-10.44); Carbon Dioxide 26 mmol/L (23-31); Chloride 108 mmol/L (98-107); Estimated GFR-MDRD 83; Globulin 2.5 g/dL (2.4-3.5); Glucose 92 mg/dL (83-110); Potassium 3.8 mmol/L (3.5-5.1); Protein, Total 6.3 g/dL (6.0-8.3); Sodium 141 mmol/L (136-145)
== END 2020-01-16 05:46 | disposition home or self-care (01) ==
LOC: ERS 02:45
DX: I10 Essential (primary) hypertension (principal); E03.9 Hypothyroidism, unspecified; E78.5 Hyperlipidemia, unspecified; E78.00 Pure hypercholesterolemia, unspecified; F41.9 Anxiety disorder, unspecified; Z79.82 Long term (current) use of aspirin; Z79.899 Other long term (current) drug therapy
CPT/HCPCS: 36415; 80053; 85025; 93005

== ENCOUNTER 2020-07-09 10:29 | Outpatient (CLI) | payer MEDICARE ==
--- NOTE | 2020-07-09 12:36 | RAD ---
ABDOMEN 1 VIEW: HISTORY: Renal calculus. COMPARISON: Radiograph of 07/11/2019. FINDINGS: The left-sided renal calculi are similar. Numerous phleboliths in the pelvis. Likely old contrast or calcium-filled diverticula in the left lower quadrant of the abdomen. IMPRESSION: Similar appearance to left-side nephrolithiasis. POS: [facility]
== END 2020-07-09 10:30 | disposition home or self-care (01) ==
LOC: BICRAD 10:29
PROVIDERS: ATTEND Urology
DX: N20.0 Calculus of kidney (principal)
CPT/HCPCS: 74018

== ENCOUNTER 2020-09-21 08:59 | Outpatient (CLI) | payer MEDICARE | END 2020-09-21 09:00 | disposition home or self-care (01) | LOC: BICCT 08:59 | PROVIDERS: ATTEND Urology | DX: N20.0 Calculus of kidney (principal); K57.30 Diverticulosis of large intestine without perforation or abscess without bleeding; K42.9 Umbilical hernia without obstruction or gangrene | CPT/HCPCS: 74176 ==

== ENCOUNTER 2021-03-16 15:13 | Outpatient (CLI) | payer MEDICARE | END 2021-03-16 15:14 | disposition home or self-care (01) | LOC: BICMAMMO 15:13 | PROVIDERS: ATTEND Obstetrics & Gynecology | DX: Z12.31 Encounter for screening mammogram for malignant neoplasm of breast (principal); Z80.3 Family history of malignant neoplasm of breast | CPT/HCPCS: 77063; 77067 ==

== ENCOUNTER 2021-07-28 11:19 | Emergency (ER) | payer OTHER, MEDICARE | END 2021-07-28 12:33 | disposition home or self-care (01) | LOC: ERS 11:19 | DX: S60.221A Contusion of right hand, initial encounter (principal); S80.01XA Contusion of right knee, initial encounter; E03.9 Hypothyroidism, unspecified; E78.5 Hyperlipidemia, unspecified; E78.00 Pure hypercholesterolemia, unspecified; I10 Essential (primary) hypertension; Z79.899 Other long term (current) drug therapy; W01.0XXA Fall on same level from slipping, tripping and stumbling without subsequent striking against object, initial encounter ==

== ENCOUNTER 2021-12-08 07:26 | Emergency (ER) | payer MEDICARE ==
[2021-12-08 07:54] LABS: #Eosinphils 0.1 thou/uL (0.0-0.7); #Lymphocytes 3.1 thou/uL (1.20-3.40); #Monocytes 0.6 thou/uL (0.11-0.59); #Neutrophils 4.4 thou/uL (1.40-6.50); %Basophils 0.2 % (0.0-1.0); %Eosinophils 1.6 % (0.0-10.0); %Lymphocytes 37.3 % (21.0-51.0); %Monocytes 7.7 % (0.0-10.0); %Neutrophils 53.2 % (42.0-75.0); Hemoglobin 15.7 g/dL (12.0-16.0); Mean Corpuscular HGB CONC 33.5 g/dL (32.0-36.0); Mean Corpuscular Hemoglobin 32.8 pg (27.0-31.0); Mean Corpuscular Volume 97.8 fL (78.0-98.0); Mean Platelet Volume 7.7 fL (7.4-10.4); Platelet Count 186 thou/uL (130-400); RBC Distribution Width 11.1 % (11.5-14.5); Red Blood Cell (RBC) Count 4.78 mill/uL (4.20-5.40); White Blood Cell (WBC) Count 8.2 thou/uL (4.8-10.8)
[2021-12-08 08:18] LABS: ALT (SGPT) 19 U/L (8-55); AST (SGOT) 23 U/L (5-34); Albumin 3.7 g/dL (3.4-4.8); Alkaline Phosphatase 82 U/L (40-110); Anion Gap 13 mmol/L (10-20); BUN (Urea Nitrogen) 14 mg/dL (9.8-20.1); Calc. Creatinine Clearance 0 mL/min (70-130); Calcium 9.1 mg/dL (7.8-10.44); Carbon Dioxide 26 mmol/L (23-31); Chloride 108 mmol/L (98-107); Globulin 2.9 g/dL (2.4-3.5); Glucose 92 mg/dL (83-110); Protein, Total 6.6 g/dL (5.8-8.1); Sodium 143 mmol/L (136-145)
[2021-12-08 10:24] LABS: Troponin I Less than 0.010 ng/mL (< 0.028)
== END 2021-12-08 10:50 | disposition home or self-care (01) ==
LOC: ERS 07:26
DX: R07.89 Other chest pain (principal); E03.9 Hypothyroidism, unspecified; I10 Essential (primary) hypertension; E78.5 Hyperlipidemia, unspecified; Z79.899 Other long term (current) drug therapy
CPT/HCPCS: 36415; 71046; 80053; 84484; 85025; 93005

== ENCOUNTER 2022-03-16 08:22 | Outpatient (CLI) | payer MEDICARE | END 2022-03-16 08:23 | disposition home or self-care (01) | LOC: BICMAMMO 08:22 | PROVIDERS: ATTEND Internal Medicine Cardiovascular Disease | DX: Z12.31 Encounter for screening mammogram for malignant neoplasm of breast (principal); Z80.3 Family history of malignant neoplasm of breast; Z91.89 Other specified personal risk factors, not elsewhere classified | CPT/HCPCS: 77063; 77067 ==

== ENCOUNTER 2022-12-22 08:51 | Outpatient (CLI) | payer MEDICARE | END 2022-12-22 08:52 | disposition home or self-care (01) | LOC: BICMRI 08:51 | PROVIDERS: ATTEND Psychiatry & Neurology Neurology | DX: G30.0 Alzheimer's disease with early onset (principal); R90.82 White matter disease, unspecified; J34.89 Other specified disorders of nose and nasal sinuses | CPT/HCPCS: 70551 ==

== ENCOUNTER 2023-03-21 13:31 | Outpatient (CLI) | payer MEDICARE | END 2023-03-21 13:32 | disposition home or self-care (01) | LOC: BICMAMMO 13:31 | PROVIDERS: ATTEND Internal Medicine Cardiovascular Disease | DX: Z12.31 Encounter for screening mammogram for malignant neoplasm of breast (principal); Z80.3 Family history of malignant neoplasm of breast; Z91.89 Other specified personal risk factors, not elsewhere classified | CPT/HCPCS: 77063; 77067 ==

== ENCOUNTER 2023-08-03 15:49 | Emergency (ER) | payer MEDICARE ==
[2023-08-03 18:59] LABS: Bacteria/HPF None Seen HPF (None Seen); Bilirubin Negative (Negative); Blood, Urine Negative (Negative); CAUTI Indications for Culture Pelvic or flank pain; Clarity Clear (Clear); Glucose, Urine (Dipstick) Normal (Negative); Ketone, Urine Negative (Negative); Leukocyte 75 Leu/uL (Negative); Nitrite Negative (Negative); Protein, Urine (Dipstick) Negative (Neg-Trace); RBC/HPF None Seen HPF (0-3); Specific Gravity, Urine 1.014 (1.002-1.036); Squamous Epithelial 0-3 HPF (0-3); Urobilinogen Normal mg/dL (Less than 2); WBC/HPF 0-3 HPF (0-3)
[2023-08-03 19:01] LABS: Urine Culture Reflex No No
[2023-08-03 19:07] LABS: #Eosinphils 0.1 thou/uL (0.0-0.7); #Monocytes 0.6 thou/uL (0.11-0.59); #Neutrophils 4.6 thou/uL (1.40-6.50); %Basophils 0.4 % (0.0-1.0); %Eosinophils 1.4 % (0.0-10.0); %Monocytes 6.8 % (0.0-10.0); %Neutrophils 57.2 % (42.0-75.0); Hematocrit 45.5 % (36.0-47.0); Hemoglobin 15.5 g/dL (12.0-16.0); Mean Corpuscular HGB CONC 34.1 g/dL (32.0-36.0); Mean Corpuscular Hemoglobin 32.4 pg (27.0-31.0); Mean Corpuscular Volume 95.2 fl (78.0-98.0); Mean Platelet Volume 10.4 fL (7.4-10.4); Platelet Count 172 10x3/uL (130-400); RBC Distribution Width 11.8 % (11.5-14.5); Red Blood Cell (RBC) Count 4.78 mill/uL (4.20-5.40); White Blood Cell (WBC) Count 8.1 10x3/uL (4.8-10.8)
[2023-08-03 19:37] LABS: SARS-CoV-2 NAA Rapid Test Not Detected (NotDetected)
[2023-08-03 19:38] LABS: Troponin I Less than 0.010 ng/mL (< 0.028)
[2023-08-03 19:39] LABS: ALT (SGPT) 21 U/L (8-55); AST (SGOT) 24 U/L (5-34); Albumin 4.1 g/dL (3.4-4.8); Alkaline Phosphatase 86 U/L (40-110); Anion Gap 12 mmol/L (10-20); BUN (Urea Nitrogen) 14 mg/dL (9.8-20.1); Bilirubin, Total 0.6 mg/dL (0.2-1.2); Calc. Creatinine Clearance 0 mL/min (70-130); Calcium 9.3 mg/dL (7.8-10.44); Carbon Dioxide 24 mmol/L (23-31); Chloride 111 mmol/L (98-107); Estimated GFR 89; Globulin 2.9 g/dL (2.4-3.5); Glucose 91 mg/dL (83-110); Potassium 4.1 mmol/L (3.5-5.1); Sodium 143 mmol/L (136-145)
== END 2023-08-03 20:28 | disposition home or self-care (01) ==
LOC: ERS 15:49
DX: R53.1 Weakness (principal); F03.90 Unspecified dementia, unspecified severity, without behavioral disturbance, psychotic disturbance, mood disturbance, and anxiety; I10 Essential (primary) hypertension
CPT/HCPCS: 0240U; 71046; 80053; 81001; 83605; 83880; 84484; 85025; 85379; 87040; 93005; 99285; 36415

== ENCOUNTER 2023-09-14 10:36 | Outpatient (CLI) | payer MEDICARE | END 2023-09-14 10:37 | disposition home or self-care (01) | LOC: BICRAD 10:36 | PROVIDERS: ATTEND Urology | DX: N20.0 Calculus of kidney (principal) | CPT/HCPCS: 74018 ==

== ENCOUNTER 2024-01-04 15:11 | Outpatient (CLI) | payer MEDICARE | END 2024-01-04 15:12 | disposition home or self-care (01) | LOC: BICMAMMO 15:11 | PROVIDERS: ATTEND Family Medicine | DX: Z13.820 Encounter for screening for osteoporosis (principal); E28.39 Other primary ovarian failure; Z78.0 Asymptomatic menopausal state; M85.88 Other specified disorders of bone density and structure, other site | CPT/HCPCS: 77080 ==